=== PATIENT | female | born 1995 | race Caucasian/White ===

== ENCOUNTER 2018-09-16 08:44 | Emergency (ER) | payer SELFPAY, MEDICAID | END 2018-09-16 10:53 | disposition home or self-care (01) | LOC: FTE 08:44 | DX: L03.113 Cellulitis of right upper limb (principal); F17.210 Nicotine dependence, cigarettes, uncomplicated | CPT/HCPCS: 99283 ==

== ENCOUNTER 2018-09-17 22:26 | Emergency (ER) | payer SELFPAY ==
[2018-09-18] MEDS: LIDOCAINE 1% (MPF) 5 ML VIAL INJ (00:40)
[2018-09-18] MEDS: CEFTRIAXONE 1 GM INJ IM (00:40)
== END 2018-09-18 01:33 | disposition home or self-care (01) ==
LOC: FTE 22:26
DX: L03.113 Cellulitis of right upper limb (principal)
CPT/HCPCS: 81025; 96372; 99284-25